=== PATIENT | female | born 1970 | race Two or more races ===

== ENCOUNTER 2021-03-09 16:33 | Emergency (ER) | payer SELFPAY ==
[~2021-03-09] VITALS: Ht 177.8 cm; Wt 136.1 kg
[2021-03-09 17:53] VITALS: BP 151/86
== END 2021-03-09 19:31 | disposition home or self-care (01) ==
LOC: ER 16:33
DX: S83.91XA Sprain of unspecified site of right knee, initial encounter (principal); M79.671 Pain in right foot; I10 Essential (primary) hypertension; E11.9 Type 2 diabetes mellitus without complications; Z90.49 Acquired absence of other specified parts of digestive tract; Z88.6 Allergy status to analgesic agent; Z91.013 Allergy to seafood; Z88.5 Allergy status to narcotic agent; W18.39XA Other fall on same level, initial encounter; Y93.89 Activity, other specified; Y92.89 Other specified places as the place of occurrence of the external cause; Y99.8 Other external cause status
CPT/HCPCS: 29505; 73562; 73630

== ENCOUNTER 2021-03-26 15:14 | Emergency (ER) | payer SELFPAY ==
[~2021-03-26] VITALS: Ht 177.8 cm; Wt 136.1 kg
[2021-03-26 17:00] VITALS: BP 148/94
== END 2021-03-26 17:23 | disposition home or self-care (01) ==
LOC: ER 15:14
DX: S29.011A Strain of muscle and tendon of front wall of thorax, initial encounter (principal); S80.212A Abrasion, left knee, initial encounter; E11.9 Type 2 diabetes mellitus without complications; I10 Essential (primary) hypertension; Z88.5 Allergy status to narcotic agent; W18.40XA Slipping, tripping and stumbling without falling, unspecified, initial encounter; Y93.89 Activity, other specified; Y92.89 Other specified places as the place of occurrence of the external cause; Y99.8 Other external cause status
CPT/HCPCS: 71101; 73562; 99284; J7050